=== PATIENT | male | born 1995 | race Caucasian/White ===

== ENCOUNTER 2024-07-15 22:06 | Inpatient (IN) | payer OTHER, SELFPAY ==
[2024-07-15 18:39] VITALS: BP 130/93
[2024-07-15 19:08] VITALS: BP 131/86
[2024-07-15 19:09] VITALS: BMI 26.5
[2024-07-15 19:33] LABS: % Basophils 0.3 % (0-2); % Eosinophils 0.9 % (0-6); % Immature Granulocytes 0.3 % (0-0.5); % Lymphocytes 16.4 % (20.5-51.1); % Monocytes 6.9 % (1.7-9.3); % Neutrophils 75.2 % (42.2-75.2); Absolute Eosinophils 0.1 10^3/uL (0-0.7); Absolute Lymphocytes 1.1 10^3/uL (1.2-3.4); Absolute Monocytes 0.5 10^3/uL (0.1-0.6); Absolute Neutrophils 5.3 10^3/uL (1.4-6.5); Hematocrit 34.8 % (39.0-52.0); Hemoglobin 12.2 g/dL (13.0-18.0); Mean Corp Hgb Conc. 35.1 g/dL (33.0-37.0); Mean Corpuscular Hgb 30.3 pg (27.0-31.0); Mean Corpuscular Volume 86.6 fL (80.0-94.0); Mean Platelet Volume 10.3 fL (7.4-10.4); Nucleated Red Blood Cells % 0 % (-); Platelet Count 160 10^3/uL (130-400); Red Blood Cell Count 4.02 10^6/uL (4.70-6.10); Red Cell Dist. Width 12.6 % (11.5-14.5)
--- NOTE | 2024-07-15 19:36 | ED.GENMED ---
History of Present Illness
General
Chief Complaint: Chest Pain
Source: patient and family
Time Seen by Provider: 07/15/24 19:14
History of Present Illness
History of Present Illness:
This patient is a 28-year-old male who presents emergency with complaints of a sore throat that started Wednesday evening associated with fever. He went to an urgent care on Wednesday and was diagnosed with strep pharyngitis and started on amoxicillin.
He feels that his sore throat has markedly improved. However, last evening he noticed that when he lays supine he feels a 'general' in the neck and chest area. This is not interrupting his sleep. When he awoke today he noticed that he has this
'general discomfort' even when he is upright. He denies difficulty swallowing, vomiting, nausea. He denies fever today. He denies swelling, change in voice, sense of fullness in the back of his throat, foreign body sensation, abdominal pain,
dyspnea, cough, rhinorrhea, or other complaints. He went to an urgent care and had it chest x-ray that was reportedly 'weird' as per family and referred to the ER.
Past History
Past History
ED Past Medical History: Psychiatric (a/d) and Other (Pneumothorax as an )
ED Past Surgical History: Other (Hernia)
Social History
Tobacco: Non-smoker
Alcohol: Occasional
Drug: None
Living: with roommate
Phy Exam
Physical Exam
Physical Exam:
GENERAL: Alert , in no apparent distress, nontoxic, extremely well-appearing
EYE: pupils equal and reactive
NECK: Supple, no significant adenopathy, no swelling, trachea midline, no tenderness to palpation.
ENT: Mild posterior pharyngeal erythema without exudate, uvula midline, no trismus, no drool, voice clear, no submental swelling.
CARDIAC: Regular rate and rhythm .
LUNGS: Clear breath sounds bilaterally, no acute respiratory distress, no wheezes/rales/rhonchi
ABDOMEN: Soft, without focal tenderness, no r/g, no cvat
NEUROLOGICAL: Alert and oriented, no focal neuro deficits
SKIN: Warm and dry, skin intact.
MUSCULOSKELETAL: No edema, well perfused.
PSYCH: Normal and appropriate interaction.
Scores
Heart Score for Chest Pain Patients
STEMI patient?: Not applicable
Course
Orders/Labs/Results
Orders:
Orders
07/15/24 Breakfast
Regular
At Your Request: Full Participation
07/15/24 18:28
ECG [Electrocardiogram (*1)] Urgent
Reason for Study: Chest Pain
EKG- Treatment ONCE
07/15/24 19:13
C-Reactive Protein Urgent
Comment: ADD ON
Complete Blood Count/With Diff Urgent
Comprehensive Metabolic Panel Urgent
Erythrocyte Sed Rate Urgent
Comment: ADD ON
Troponin I Urgent
07/15/24 19:35
Neck Soft Tissue [CR Soft Tissue Neck ] Urgent
Comment:
Reason For Exam: pain s/p dx of strept pharyngitis
07/15/24 19:43
CT Chest W/o Iv Contrast Urgent
Comment:
Reason For Exam: reported cxr abnl, c/o cp s/p pharyngitis
07/15/24 20:07
Add On- LAB Urgent
Tests Added?: ESR, CRP
07/15/24 20:24
Ketorolac [Toradol] 15 mg .ROUTE .STK-MED ONE
Ketorolac [Toradol] 15 mg IV NOW STA
07/15/24 21:00
COVID-19 Antigen Urgent
Source: Nasal Swab
Influenza A+B Rapid Molecular Urgent
BRANDON Source: Nasal Swab
Specimen Description:
07/15/24 21:35
Admit/Transfer Patient As Directed
Co-Sign Provider:
Level of Care: Inpatient admission
Assign to:: IMU- Intermediate Care
Physician / Group: Stephany
Diagnosis: Myocarditis / Acute Rheumatic Fever
Reason for Hospitalization: Myocarditis / Acute Rheumatic Fever
Expected length of stay greater than two midnights?: Yes
ELOS- Estimated Length of Stay in days: 3
I certify the patient meets the requirements for IP care: Yes
PRN Pain Medication Management As Directed
May give lesser potent ordered pain med per pt: Yes
preference::
Protocol:: Medication orders for pain may be administered in a
manner that supports deferring to patient preference
when the pt is:
- Requesting an ordered lesser potent pain medication.
Least to most potent pain medications are defined
as: acetaminophen < NSAID < tramadol < opioids
(morphine, oxycodone, hydromorphone).
- Requesting a lesser dose of the same medication IF
ORDERED.
- Requesting a less intrusive route of administration
if both routes are prescribed by the provider (PO <
IV).
07/15/24 21:36
Code Status As Directed
Resuscitation Status: Full Code
07/15/24 22:40
Acetaminophen [Tylenol] 650 mg PO Q4HPRN PRN
HYDROmorphone [Dilaudid] 0.5 mg IV Q4HPRN PRN
Lactated Ringers [Lr] 1,000 ml IV 100 mls/hr
07/15/24 22:40
Echo 2D MMode Doppler [Echo 2D MMode Color/Doppler] Routine
Reason for Study: Myocarditis / Acute Rheumatic Fever
CARDIOLOGY CONSULT Routine
Consulting Provider: Gilmar Cordon)
Was physician already notified: Yes
Reason for consult: Myocarditis / Acute Rheumatic Fever
INFECTIOUS DISEASE CONSULT Routine
Consulting Provider: Destiney López
Was physician already notified: Yes
Reason for consult: Myocarditis / Acute Rheumatic Fever
Activity As Directed
Activity Level: Ambulate
EKG with chest pain [ECG as needed] As Directed
ECG as needed for:: Chest Pain
I/O [Intake/ Output] As Directed
Frequency: Per unit guidelines
Pneumatic Compression Sleeves As Directed
Type: Knee high
Vital Signs As Directed
Frequency: Per unit guidelines
Oxygen Therapy [O2 Therapy] [RESP] Routine
Titrate/Wean O2 to maintain O2 sat greater than (%): 94
DX Deep Vein Thrombosis Video Routine
07/15/24 22:53
TSH Reflex To Free T4 Routine
Troponin I Q6H
07/15/24 23:00
Ampicillin/Sulbactam 3 G [Unasyn] 3 gm 0.9% Sodium Chloride 100 ml [Nss] 100 ml IV Q6H
07/16/24 03:40
Troponin I Q6H
07/16/24 06:00
EKG [Electrocardiogram (*1)] IN AM
Reason for Study: Chest Pain
Basic Metabolic Panel IN AM
Complete Blood Count/No Diff IN AM
07/16/24 09:40
Troponin I Q6H
Abnormal Lab Results
07/15/24
19:13
RBC 4.02 L 10^6/uL
(4.70-6.10)
Hgb 12.2 L g/dL
(13.0-18.0)
Hct 34.8 L %
(39.0-52.0)
Absolute Lymphs (auto) 1.1 L 10^3/uL
(1.2-3.4)
Lymphocytes % 16.4 L %
(20.5-51.1)
ESR 37 H mm/hour
(0-20)
Glucose 102 H mg/dl
(70-99)
AST 86 H U/L
(17-59)
Alkaline Phosphatase 33 L U/L
(38-126)
Troponin I 11.900 H* ng/ml
C-Reactive Protein 126.50 H mg/L
(0.0-10.00)
07/15/24 19:13
07/15/24 19:13
Vital Signs
Initial and Last Documented VS:
Initial Vital Signs
Temp Pulse Resp BP Pulse Ox
98.4 F 91 18 130/93 100
07/15/24 18:39 07/15/24 18:39 07/15/24 18:39 07/15/24 18:39 07/15/24 18:39
Last Documented Vital Signs
Temp Pulse Resp BP Pulse Ox
98.4 F 109 18 130/93 98
07/15/24 22:30 07/16/24 00:15 07/16/24 00:15 07/15/24 22:28 07/15/24 22:30
*Critical Care Note
Total Time (30-74mins, 75-104mins- exclusive of procedures): Not Applicable
Update Note
Update Note:
Patient presents to the Emergency Department with __general discomfort in neck and chest area
Number and Complexity of Problems Addressed at the Encounter
� Chronic conditions affecting care:
� Acute Exacerbation and/or Progression of Chronic Illness:
� Differential Diagnosis includes: But not limited to pneumonia, bronchitis, neck infection, etc. etc.
Amount and/or Complexity of Data to be Reviewed and Analyzed
� I performed an independent evaluation of and my interpretation is:
EKG: Read by me, normal sinus rhythm, normal rate, normal axis, no NM depression, ST elevation, or other abnormalities noted
CT:
Xrays:
Laboratory Studies: Markedly elevated troponin at 11.9 elevated ESR, normal white blood cell count
Other:
� Review of other/old records reveals:
� Clinical information was obtained by an independent historian: Mother and father who are at bedside
� Prescriptions/Medications Considered but not given:
� Further testing considered but not performed:
Risk of Complications and/or Morbidity or Mortality of Patient Management
� Social determinants of health affecting care:
� Discussion with other providers (PCP, Hospitalists, Consultants, etc):
� Escalation of care including admission/observation vs risk of discharge considered: I looked at x-ray from urgent care via synapse and there is some shadowing at the left base of unclear etiology however not suspicious for
pneumothorax or pneumonia. CT is completely normal. No pericardial effusion noted. Clinical picture consistent with myocarditis, no ECG findings to suggest pericarditis at this time. Vital signs are unremarkable, blood pressure stable, do not
have concerns of pericardial effusion or tamponade impending. Airway stable. Case discussed with cardiology, Dr. Cordon, who agrees and recommends telemetry monitoring and continue supportive care. Long discussion with parents and patient,
questions answered. [place] text to hospitalist.
ED Attending Note
-
Portions of this chart may have been created with voice recognition software.� Occasional wrong word or��sound alike� substitutions may have occurred due to the inherent limitations of voice recognition software.
Discharge Plan
Departure
Patient Disposition: Admit
Date of Disposition: 07/15/24
Time of Disposition: 20:56
Admit to: Telemetry
Admit to doctor: stephany
Presentation/result/management discussed w/ accepting MD/DO: Hospitalist
Condition: Fair
Discharge Problem:
Myocarditis
Interventions
Interventions:
*Risk Screen - Suicide Last Done: 07/15/24 18:39
*General Assessment Last Done: 07/15/24 18:39
*Neglect/Abuse Screening Last Done: 07/15/24 18:39
ED- Fall Risk Assessment Last Done: 07/15/24 19:09
*ED COVID-19 Vaccine History Last Done: 07/15/24 22:54
*Nursing Disposition Last Done: 07/15/24 22:35
ED- Cardiac Assessment Last Done: 07/15/24 19:22
Discharge Date and Time
Discharge Date/Time: 07/15/24 22:35
[2024-07-15 20:01] LABS: ALT (SGPT) 36 U/L (0-50); AST (SGOT) 86 U/L (17-59); Albumin 4.5 g/dl (3.5-5.0); Alkaline Phosphatase 33 U/L (38-126); Blood Urea Nitrogen 15 mg/dl (9-20); Calcium 9.4 mg/dl (8.4-10.2); Carbon Dioxide 28 mmol/L (22-30); Chloride 102 mmol/L (98-107); Estimated Creatinine Clearance > 125 ml/min; Glucose 102 mg/dl (70-99); Sodium 143 mmol/L (135-145); Total Bilirubin 0.6 mg/dl (0.2-1.3); Total Protein 7.2 g/dl (6.3-8.2); eGFR > 60.00
[2024-07-15 20:33] LABS: Erythrocyte Sed Rate 37 mm/hour (0-20)
[2024-07-15] MEDS: TORADOL 15 MG IV (20:39)
[2024-07-15 20:57] VITALS: BP 139/99
[2024-07-15 21:28] VITALS: BP 135/94
[2024-07-15 21:29] LABS: COVID-19 Antigen Negative (Negative)
--- NOTE | 2024-07-15 21:44 | HPS.HSE ---
Family Physician
-
Family Physician: Av Castillo
Chief Complaint
-
Sore throat, Chest Discomfort
History of Present Illness
Patient is a 28y M with no significant PMH who presents to ED complaining of chest discomfort for 24 hours. Patient states that he initially developed sore throat and fever on Wednesday. He was seen at an Urgent Care and diagnosed with Strep
throat on Wednesday or (he cannot recall which). He started taking amoxicillin TID that day - he is unsure of the dose. Patient states that his sore throat and fever have improved since that time - but not fully resolved. Yesterday
afternoon, he noted some mild chest pressure. No associated palpitations, SOB, dizziness, etc. Discomfort is in the chest / epigastric region and occasionally in the back.
No N/V/D. No urinary complaints.
Medical History
Past Medical History
Past Medical History: Reports Other
Additional Past Medical History:
ADHD
Past Surgical History: Reports Other
Additional Past Surgical History:
Epigastric Hernia Repair
Social History
Tobacco: Non-smoker
Alcohol: Occasional (Rare)
Drug: None
Living: With Family
Family History
Family History: Other (Father: CAD)
Allergies / Home Medications
Allergies reflects when Allergies were last updated in [facility].
Home Medications with original date entered in [facility]
Allergy/Medication List:
Allergies
Allergy/AdvReac Type Severity Reaction Status Date / Time
No Known Allergies Allergy Verified 08/11/23 07:37
Home Medications
lorazepam 0.5 mg tablet 0.5 mg PO TID PRN anxiety 08/04/23
acetaminophen 325 mg tablet 650 mg (2 x 325 mg) PO Q4HPRN PRN mild pain #1 tab 08/11/23
ibuprofen 200 mg tablet 400 - 600 mg (2 - 3 x 200 mg) PO Q6HPRN PRN moderate pain #1 tab 08/11/23
amoxicillin 500 mg capsule mg PO TID 07/15/24
Review of Systems
-
History Source: Patient
A 12 point ROS was completed and negative except as noted: Yes
Constitutional: Reports Fever, Fatigue and Chills
EENT: Reports Sore Throat and Runny Nose
Respiratory: Denies Cough or Trouble Breathing
Cardiac: Reports Chest Pain; Denies Diaphoresis, Palpitations or Syncope
Abdomen/GI: Denies Abdominal Pain, Nausea, Vomiting or Diarrhea
: Denies Dysuria or Flank Pain
Neurological: Denies Dizzy or Headache
Psych: Denies Depression or Anxiety
Physical Exam
Vital Signs
Vital Signs
Temp Pulse Resp BP Pulse Ox
100.5 F H 100 24 135/94 99
07/15/24 20:55 07/15/24 21:30 07/15/24 21:30 07/15/24 21:28 07/15/24 21:30
Physical Exam
General: Other (28y M in no acute distress.)
HEENT: Moist mucous membranes, PERRLA and Other (Posterior pharygeal erythema, enlarged tonsils with erythema.)
Respiratory: Clear; No Wheezes, Rales or Rhonchi
Cardiac: S1/S2 and Tachycardia; No Murmur
GI: Soft, Non Tender, Non Distended and Normal Bowel Sounds
Musculoskeletal: No Clubbing, No Cyanosis and No Edema
Neuro: AO x 3
Laboratory Results
-
07/15/24 19:13
07/15/24 19:13
Laboratory Results
Total Bilirubin 0.6 mg/dl (0.2-1.3) 07/15/24 19:13
AST 86 U/L (17-59) H 07/15/24 19:13
ALT 36 U/L (0-50) 07/15/24 19:13
Alkaline Phosphatase 33 U/L (38-126) L 07/15/24 19:13
Troponin I 11.900 ng/ml H* 07/15/24 19:13
Impression/Plan
-
A/P: Patient is a 28y M with no significant PMH who presents to ED complaining of chest discomfort for the past 24 hours and recent sore throat / Strep.
Strep Pharyngitis
Acute Rheumatic Fever secondary to the above
Myocarditis secondary to the above
- Admit to monitored bed for further evaluation and treatment.
- Continue abx with IV Unasyn for now.
- Supportive care including pain control, antipyretics, etc.
- Monitor for any evidence of arrhythmia - none at present.
- Cardiology and ID consulted for additional recommendations.
- Check Echo.
- Follow for any new / worsening symptoms.
- Follow troponin to peak.
DVT Prophylaxis: SCDs
Code Status: Full
[2024-07-15 22:00] VITALS: BP 130/93
[2024-07-15 22:28] VITALS: BP 130/93
[2024-07-15] MEDS: LR 1000 IV (23:05)
[2024-07-15] MEDS: UNASYN IV (23:40)
[2024-07-15 23:47] LABS: TSH Reflex To Free T4 1.86 uIU/ml (0.47-4.68)
[2024-07-16] VITALS (9 sets, daily range): BP systolic 106–124; BP diastolic 71–86; BMI 27.0
--- NOTE | 2024-07-16 00:06 | PTCARENOTE ---
Pt Aox3, Independent, denies pain, but he has discomfort in his epigastric region, that has been the same since admission. Trending trops, 2nd trop more elevated at 16.7, house provided notified, no further orders at this time.
[2024-07-16 04:20] LABS: Hematocrit 31.9 % (39.0-52.0); Hemoglobin 11.3 g/dL (13.0-18.0); Mean Corp Hgb Conc. 35.4 g/dL (33.0-37.0); Mean Corpuscular Hgb 29.4 pg (27.0-31.0); Mean Corpuscular Volume 82.9 fL (80.0-94.0); Mean Platelet Volume 10.5 fL (7.4-10.4); Platelet Count 157 10^3/uL (130-400); Red Blood Cell Count 3.85 10^6/uL (4.70-6.10); Red Cell Dist. Width 12.6 % (11.5-14.5); White Blood Cell Count 6.8 10^3/uL (4.8-10.8)
[2024-07-16 04:39] LABS: Blood Urea Nitrogen 21 mg/dl (9-20); Calcium 9.2 mg/dl (8.4-10.2); Carbon Dioxide 26 mmol/L (22-30); Chloride 103 mmol/L (98-107); Estimated Creatinine Clearance > 125 ml/min; Glucose 106 mg/dl (70-99); Potassium 3.9 mmol/L (3.5-5.1); Sodium 141 mmol/L (135-145); eGFR > 60.00
[2024-07-16] MEDS: UNASYN IV (05:04)
[2024-07-16] MEDS: TYLENOL 650 MG PO ×2 (05:10→15:58)
[2024-07-16] MEDS: TORADOL 15 MG IV (06:09)
[2024-07-16] MEDS: LR 1000 IV (06:12)
--- NOTE | 2024-07-16 06:25 | PTCARENOTE ---
Pt given dose of Toradol for discomfort in chest and scapula. Trops continue to trend up, house provider Paulette smith notified. Also mortgage advisor Gilmar Cordon was notified, awaiting response. No further orders at this time.
--- NOTE | 2024-07-16 07:26 | W.PN.HOSP.TC ---
Today's Communication/Plan
-
Transfer to telemetry
Continue antibiotics
Echocardiogram
ID consult
Cardiology consult
Assessment / Plan
Assessment / Plan
Gen-AAOx3, NAD
HEENT-NC, AT, anicteric, clear oral mm
Neck-supple
CV-reg, no M, +S1/S2
Lungs-clear B/L
Abd-soft, NT, ND
Ext-no edema
Musculoskeletal-no cyanosis, clubbing
Skin-warm and dry
Neuro-grossly non-focal
Psych-calm, cooperative
Acute rheumatic fever - complicated by myocarditis, rheumatic heart disease. Presentation with chest pain. Rule out valvular involvement, check echocardiogram. Rising troponin noted. Continue antibiotics. Toradol IV as needed chest pain.
He denies arthritis, rash, or neurologic symptoms.
Denies history of rheumatic fever. Denies dyspnea on exertion.
Admits to frequent strep throat infections as a child, last was at least 10 years ago.
Will need secondary prophylaxis with oral penicillin for the next 10 years. Has never been on prophylaxis previously.
Recent group A beta-hemolytic strep infection - started on amoxicillin last week. Girlfriend had a sore throat before he did. She works with children. She did not get tested for strep throat, recommend that she gets tested.
Full code
Transfer to telemetry.
Anticipated Discharge: 24 - 48 hours
Subjective/Interval History
-
Date of Service: July 16, 2024
Patient seen and examined. Was having upper back pain last night but now improved sitting in the chair. Denies significant chest pain.
Objective Data
-
Labs:
Laboratory Results
07/16/24
03:57
WBC 6.8
Hgb 11.3 L
Hct 31.9 L
Plt Count 157
Sodium 141
Potassium 3.9
Chloride 103
Carbon Dioxide 26
BUN 21 H
Creatinine 0.8
Glucose 106 H
Calcium 9.2
Vital Signs:
Vital Signs
Temp Pulse Resp BP Pulse Ox
99.1 F 93 21 106/73 98
07/16/24 04:10 07/16/24 03:30 07/16/24 03:30 07/16/24 02:00 07/16/24 02:43
I&O
07/15/24 07/16/24 07/17/24
07:59 06:59 06:59
Intake Total
Balance
Review of Systems
-
History Source: Patient
All other systems: Reviewed and negative
--- NOTE | 2024-07-16 08:19 | CON.ID ---
Consultation
-
Date/Time Consultation Requested: July 15, 20240
Date/Time Consultation Performed: July 16, 2024 0820
Requesting Provider: Dr. Doron Smith
Performing Provider: Dr. Destiney López
Reason for Consultation: Rheumatic fever
Chief Complaint / Past History
Chief Complaint
Chest discomfort
History of Present Illness
28-year-old male with no past medical history who presented to the hospital last night due to 2-day history of chest discomfort. He reports last week on Wednesday or Wednesday, July 10, he developed scratchy throat. COVID was negative. He had fever
up to 103. The sore throat got worse and he saw white exudate. He then went to urgent care on Wednesday. Rapid group A strep screen was amoxicillin 3 times daily. Sore throat improved. However Wednesday he noted substernal discomfort in supine
position. Later the chest discomfort was not positional. He went back to urgent care who recommended going to the ER. Yesterday in the ER temperature 100.5. Troponin was 11.9. Sed rate and CRP elevated. He was started on Unasyn. He still has
chest discomfort today. The sore throat is improving. No joint pains. No rash or cutaneous lumps. His girlfriend is a pre-schoolteacher and was ill 2 days prior to him getting ill. She did have sore throat which and she recovered quickly. He
and his roommate became ill around the same time. Patient states he had history of strep throat about 4 or 5 times when he was young without complications.
Past History
Past Medical History: None
Additional Past Surgical History:
Abdominal hernia repair
Allergy History:
No Known Allergies Allergy (Verified 08/11/23 07:37)
Medications Reviewed: Yes
Current Antibiotics:
Unasyn
Social History
Tobacco: Non-Smoker
Alcohol: None
Drug: None
Personal: Single
Living: With Roomate
Employment: Employed (IT)
Family History
Family History: Not Pertinent
Review of Systems
Review of Systems
General: Fever and Change in Appetite; Negative Chills
HEENT: Pharyngitis; Negative Stiff Neck, Sinus Problems or Headache
Cardiovascular: Chest Pain; Negative Dyspnea
Respiratory: Negative Cough
Gasteroenterology: Negative Nausea, Vomiting or Diarrhea
Genital / Urological: Negative Dysuria or Flank Pain
Endocrine: Negative Weakness
Musculoskeletal: Negative Arthralgias
Skin / Hair / Nails: Negative Rash
Neurological: Negative Headache or Dizziness
All systems: All other systems were reviewed and were negative
Vital Signs
Temp Pulse Resp BP Pulse Ox
99.1 F 93 21 106/73 98
07/16/24 04:10 07/16/24 03:30 07/16/24 03:30 07/16/24 02:00 07/16/24 02:43
Selected Entries
07/15/24
20:55
Temp 100.5 F H
Physical Exam
Physical Exam
Constitutional: No Acute Distress and Comfortable
Eyes: No Conjunctival Hemorrhage and Sclera Anicteric
Pharynx: Other (Mild exudate right pharynx)
Cardiovascular: Regular Rate and S1/S2
Pulmonary: Clear
Gastrointestinal: Soft, Non Tender, Non Distended and Normal Bowel Sounds
Genito-Urinary: Negative CVA Tenderness
Extremities: Negative Edema
Musculoskeletal: Negative Joint Swelling, Joint Effusion or Spinal Tenderness
Skin: Negative Rash
Neurological: AO x 3
Lab / Diagnostic Study Results
07/16/24 03:57
07/16/24 03:57
Abs Immat Gran (auto) 0.0 10^3/uL (0-0.05) 07/15/24 19:13
Absolute Neuts (auto) 5.3 10^3/uL (1.4-6.5) 07/15/24 19:13
Absolute Lymphs (auto) 1.1 10^3/uL (1.2-3.4) L 07/15/24 19:13
Absolute Monos (auto) 0.5 10^3/uL (0.1-0.6) 07/15/24 19:13
Absolute Basos (auto) 0.0 10^3/uL (0-0.2) 07/15/24 19:13
Immature Gran % 0.3 % (0-0.5) 07/15/24 19:13
Neutrophils % 75.2 % (42.2-75.2) 07/15/24 19:13
Lymphocytes % 16.4 % (20.5-51.1) L 07/15/24 19:13
Monocytes % 6.9 % (1.7-9.3) 07/15/24 19:13
Eosinophils % 0.9 % (0-6) 07/15/24 19:13
Basophils % 0.3 % (0-2) 07/15/24 19:13
ESR 37 mm/hour (0-20) H 07/15/24 19:13
C-Reactive Protein 126.50 mg/L (0.0-10.00) H 07/15/24 19:13
Microbiology Results
Micro:
07/15/24 21:00 Influenza Types A & B (QUETA) - Final
Nasal Swab Negative for Influenza A & B, NAAT
Negative results must be combined with clinical observations
and patient history.
Nucleic Acid Amplification test (NAAT)performed on the
[employer] platform.
07/15/[address]: Unremarkable CT of the Chest without contrast.
07/15/24 Neck XRAY: No retropharyngeal soft tissue swelling. No radiopaque foreign body. Subtle fullness at the base of tongue region of the vallecula, which could represent mild reactive/inflammatory lymphoid tissue given history of recent strep
pharyngitis.
Assessment / Plan
# Acute rheumatic fever with carditis
- Meets [facility] Kathy criteria: 1 major carditis; 2 minor: fever and elevated ESR/CRP
- DC Unasyn
- Eradicate GAS with PCN VK 500mg po q8h x 10 days
- After treatment, need prophylactic PCN VK 250mg po bid
- Duration of prophylaxis depends on sequelae of carditis
- For TTE.
Care Review
Plan reviewed with: Physician (Dr. [place] Cordon)
--- NOTE | 2024-07-16 09:43 | CON.CAR ---
Consultation
Consultation Request
Date/Time Consultation Requested: 07/15/24 @ 9:30pm
Date/Time Consultation Performed: 07/16/24 @ 8:30am
Requesting Provider: Luis Sal
Performing Provider: Gilmar Cordon
Reason for Consultation: myocarditis
Medical History
-
Chief Complaint: Chest pain
History of Present Illness:
28-year-old male with past medical history of anxiety and family history of early coronary artery disease who presents to the ER with chest pain.
Patient reports that earlier this week he was diagnosed with strep throat and was started on amoxicillin. On Wednesday evening, he noted that when he was laying down to go to bed he felt some chest discomfort and mild shortness of breath. This
resolved and he was able to sleep but on Wednesday his pain progressed so he decided to present to the ER. In the ER, his ECG was nonischemic and troponin was elevated to 11.9. He was admitted to the hospitalist service and cardiology is consulted
for chest pain and elevated troponin, overall concerning for viral myocarditis.
He has never seen a fitting room inspector and has no significant cardiovascular history other than occasional PVCs. His father had a CABG in his 40s as did his uncle. He has had cholesterol checked before and thinks it was okay; no treatment was
recommended. He is a non-smoker and works in IT. He does not do cardio for exercise but does push-ups and pull-ups without any symptoms. He also moves a lot of heavy things for work and has no symptoms with any of this.
Past Medical History
Past Medical History: Arrhythmias (PVCs) and Psychiatric (Anxiety)
Social History
Tobacco: Non-Smoker
Employment: Employed (Works in IT)
Family History
Family History: Early CAD (Father had a CABG in his 40s)
Allergies / Home Medications
Allergy/AdvReac Type Severity Reaction Status Date / Time
No Known Allergies Allergy Verified 08/11/23 07:37
�Medication �Instructions �Recorded �Confirmed �Type
lorazepam 0.5 mg tablet 0.5 mg PO TID PRN anxiety 08/04/23 07/15/24 History
acetaminophen 325 mg tablet 650 mg (2 x 325 mg) PO Q4HPRN PRN 08/11/23 07/15/24 Rx
mild pain #1 tab
ibuprofen 200 mg tablet 400 - 600 mg (2 - 3 x 200 mg) PO 08/11/23 07/15/24 Rx
Q6HPRN PRN moderate pain #1 tab
amoxicillin 500 mg capsule mg PO TID Infection 07/15/24 History
Review of Systems
-
All other systems: Negative unless noted
Physical Exam
Vital Signs
Temp Pulse Resp BP Pulse Ox
99.5 F 97 19 114/71 98
07/16/24 08:23 07/16/24 08:30 07/16/24 08:30 07/16/24 08:24 07/16/24 02:43
Lab Results
07/16/24 03:57
07/16/24 03:57
Troponin I 18.800 ng/ml H* 07/16/24 03:57
CRP 126.5
Physical Exam
General: Well Developed, Well Nourished and Comfortable
Cardiac: S1/S2 and Regular Rhythm; Negative Murmur, Rub, Peripheral Edema or JVD
Musculoskeletal: No Edema
Impression / Plan
-
28-year-old male with past medical history of anxiety and family history of early coronary artery disease with recently diagnosed strep infection who presents to the ER with chest pain and elevated troponin, concerning for viral myocarditis.
Viral myocarditis
-Likely triggered by his recent strep infection. Appears uncomplicated at this time given no signs or symptoms consistent with LV dysfunction and no arrhythmias on telemetry
-We will obtain an echocardiogram tomorrow
-Continue to monitor on telemetry
-He will need a cardiac MRI as an outpatient
-Treatment for myocarditis is supportive care. NSAIDs should be avoided. He can take Tylenol as needed for pain.
-He should not exercise vigorously for 3-6 months prior to returning to exercise he will need an ETT, event monitor, and echocardiogram
-Appreciate ID recommendations for treatment of his strep infection
Data Reviewed
-
EKG: Tracing Personally Visualized and interpreted, Discussed with Physician, Discussed with Nurse and Discussed with Patient
CT Scan: Report Reviewed by me, Discussed with Physician and Discussed with Patient
Labs: Labs Reviewed by me, Discussed with Physician and Discussed with Patient
--- NOTE | 2024-07-16 10:25 | CM ---
CM following re: discharge planning.
Reviewed pt's chart, met with pt. pt's father, mother and sister at bedside.
Pt is a 28 year old male, admitted with primary dx of Acute rheumatic fever - complicated by myocarditis, rheumatic heart disease.
Pt reports he lives with a room mate in a 2SH, 1 step to enter, has suppertime parents and younger sister. 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 Pt expressed to me his worried feelings regrading his diagnosis, emotional
support with reassurance offered and provided.
PCP: Av Castillo
Pharmacy: [facility].
D/C plan: home with anticipated no after care VN needs.
CM will follow with discharge plan updates as hospitalization progresses
--- NOTE | 2024-07-16 12:00 | PTCARENOTE ---
Rec'd pt at 0700. Pt states that his CP has improved, has some mild sternal and upper back discomfort but it is minimal. Monitor SR/ST. Lungs CTA. Pt OOB in chair, ambulating in room. Family at bedside, updated by cardiology.
[2024-07-16] MEDS: PEN VK 500 MG PO ×2 (14:24→22:01)
--- NOTE | 2024-07-16 15:54 | PTCARENOTE ---
Received pt from ICU. [facility]. Pt has temp of 100 and complains of some pain in sternum. Tylenol given. Pt and visitor oriented to unit by RN. Call david within reach.
[2024-07-17 03:36] VITALS: BP 123/79
[2024-07-17] MEDS: PEN VK 500 MG PO ×3 (06:18→21:12)
[2024-07-17] MEDS: TYLENOL 650 MG PO ×3 (07:29→21:13)
[2024-07-17 07:30] VITALS: BP 111/68
--- NOTE | 2024-07-17 08:37 | W.PN.CD ---
Today's Communication / Plan
-
Labs pending.
Keep K > 4, Mg > 2, Ca > 8 and PO4 > 2.5.
Start metoprolol succinate 25 mg daily.
Echocardiogram today.
GDMT as indicated.
Avoid NSAIDS.
Impression / Plan
-
Impression/Plan: 28-year-old male with past medical history of anxiety and family history of early coronary artery disease with recently diagnosed strep infection who presents to the ER with chest pain and elevated troponin, consistent with
myocarditis.
#Myocarditis
-Likely triggered by his recent strep infection. Appears uncomplicated at this time given no signs or symptoms consistent with LV dysfunction and no arrhythmias on telemetry.
-ID concerned for acute rheumatic fever. The patient does meet diagnostic criteria of 1 major manifestation (carditis) and 2 minor criteria (fever, elevated inflammatory markers), though the timing is not typical.
-Regardless, the potential risks of under treating rheumatic fever are high.
-Echocardiogram today.
-He will need a cardiac MRI as an outpatient.
-Treatment for myocarditis is supportive care. NSAIDs should be avoided. He can take Tylenol as needed for pain.
-He should not exercise vigorously for 3-6 months prior to returning to exercise he will need an ETT, event monitor, and echocardiogram.
-Appreciate ID recommendations for treatment of his strep infection.
-Supportive cardiac medications will depend largely on his echo results (GDMT). No evidence of heart failure.
#NSVT
-Acute.
-Likely due to myocarditis.
-Labs pending.
-Keep K > 4, Mg > 2, Ca > 8 and PO4 > 2.5.
-Start metoprolol succinate 25 mg daily.
Subjective/Interval History:
CRP = 126.5.
Troponin peaked at 24.8.
Patient given ketorolac.
NSVT seen on telemetry.
Patient feels well this AM.
Physical Exam
Vital Signs/Labs
Vital Signs
Temp Pulse Resp BP Pulse Ox
37.4 C 95 16 111/68 99
07/17/24 07:30 07/17/24 07:30 07/17/24 07:30 07/17/24 07:30 07/17/24 07:30
07/15/24 07/16/24 07/17/24
12:59 11:59 11:59
Actual Weight
07/16/24 03:57
07/16/24 03:57
LAB Results
07/15/24 07/15/24 07/16/24
19:13 22:53 03:57
Troponin I 11.900 H* 16.700 H* D 18.800 H*
07/16/24 07/16/24 07/16/24
10:12 16:00 19:57
Troponin I 24.800 H* D Cancelled 23.200 H*
07/16/24 07/17/24
22:00 06:55
Troponin I Cancelled 22.500 H*
Physical Exam
Constitutional: No acute distress and Comfortable
EENT: Anicteric and Moist mucous membranes
Cardiovascular: Rhythm & rate is regular, Pedal edema is absent, JVD pressure is normal, S1S2 is normal and Murmur/rub/gallop absent
Respiratory: Respiratory effort normal, Lungs clear to auscul., Wheeze Absent, Crackles Absent and Rhonchi Absent
GI: Soft, Distention absent, Flat, Non tender and Normal bowel sounds
Neuro/Psych: AO x 3
Data Reviewed
-
Date of Service: July 17, 2024
Medical Decision Making: Reviewed Test Results, Independent Historian Assessment and Test Interpretation
EKG: Tracing Personally Visualized and interpreted and Report Reviewed by me
Echo: Ordered by me
X-Ray/CT/US/MRI/NUC/PET: Image Personally Visualized and interpreted and Report Reviewed by me
Medical Tests (PFT, Pathology etc): Image Personally Visualized and interpreted and Report Reviewed by me
Labs: Labs Reviewed by me
Old Records: Reviewed
[2024-07-17 09:46] LABS: Magnesium 1.9 mg/dl (1.6-2.3); Phosphorus 4.6 mg/dl (2.5-4.5)
[2024-07-17] MEDS: TOPROL XL 25 MG PO (09:49)
--- NOTE | 2024-07-17 10:38 | CM ---
Patient seen bedside.
Patient denies home care needs.
Plan: home no needs.
--- NOTE | 2024-07-17 11:46 | W.PN.ID1 ---
Date of Service
Date of Service: July 17, 2024
Today's Communication
Continue PCN VK 500mg po q8h x 10d through 06/23/2024, then prophylactic PCN VK 250mg po bid x 10 years till 06/2034.
Assessment / Plan
# Acute rheumatic fever with myocarditis
- Positive rapid group A strep at urgent care
- Meets Kathy Steele criteria: 1 major: carditis; 2 minor: fever and elevated ESR/CRP
- Troponin peaked to 24.8, trending down
- TTE: normal EF, no pericardial effusion, no valvular abnormality.
- Continue PCN VK 500mg po q8h x 10d through 06/23/2024, then prophylactic PCN VK 250mg po bid x 10 years till 06/2034.
- Can follow up with PCP.
Chief Complaint
-: Other (Rheumatic fever)
Subjective / Review of Systems
Chest discomfort improved with Tylenol.
No more sore throat. Has scratchy throat.
Vital Signs / Physical Exam
Vital Signs
Vital Signs
Temp Pulse Resp BP Pulse Ox
99.4 F 95 16 111/68 99
07/17/24 07:30 07/17/24 09:49 07/17/24 07:30 07/17/24 09:49 07/17/24 08:15
Physical Exam
Constitutional: No Acute Distress and Comfortable
Oropharyngeal: Negative Erythema
Cardiovascular: Regular Rate and S1/S2
Pulmonary: Clear
Gastrointestinal: Soft, Tender, Distended and Normal Bowel Sounds
Extremities: Negative Edema
Neurological: AO x 3
Objective Data
Lab Data
Lab Results
07/16/24 03:57
07/16/24 03:57
ESR 37 mm/hour (0-20) H 07/15/24 19:13
Estimated Creat Clear > 125 ml/min 07/16/24 03:57
Total Bilirubin 0.6 mg/dl (0.2-1.3) 07/15/24 19:13
AST 86 U/L (17-59) H 07/15/24 19:13
ALT 36 U/L (0-50) 07/15/24 19:13
Alkaline Phosphatase 33 U/L (38-126) L 07/15/24 19:13
C-Reactive Protein 126.50 mg/L (0.0-10.00) H 07/15/24 19:13
Most recent labs reviewed.
Micro Results:
07/15/24 21:00 Influenza Types A & B (QUETA) - Final
Nasal Swab Negative for Influenza A & B, NAAT
Negative results must be combined with clinical observations
and patient history.
Nucleic Acid Amplification test (NAAT)performed on the
[employer] platform.
07/15/[address]: Unremarkable CT of the Chest without contrast.
07/15/24 Neck XRAY: No retropharyngeal soft tissue swelling. No radiopaque foreign body. Subtle fullness at the base of tongue region of the vallecula, which could represent mild reactive/inflammatory lymphoid tissue given history of recent strep
pharyngitis.
07/17/24 TTE:
Normal biventricular size and systolic function without regional wall motion abnormality.
LVEF 55-60%.
No significant valvular disease.
No pericardial effusion.
[2024-07-17 12:00] VITALS: BP 127/72
--- NOTE | 2024-07-17 15:14 | W.PN.HOSP.TC ---
Today's Communication/Plan
-
Monitor for recurrent VT with initiation of beta-anisa.
Continue antibiotics
Assessment / Plan
Assessment / Plan
Impression:
Myocarditis triggered by recent streptococcal infection
Rheumatic fever
NSVT
Plan
Acute myocarditis. Most likely by recent streptococcal infection.
Meeting criteria for acute rheumatic fever.
Troponin peaked at 24 send
No evidence for ischemia
Echocardiogram with preserved biventricular function and no valvular abnormalities
Plan is to complete 10-day course of full dose of penicillin VK to eradicate group A streptococcus and transition to prophylactic dose at 250 mg twice daily for 10 years to 06/2034
NSVT.
Acute and likely secondary to myocarditis.
Potassium magnesium within normal limits.
Initiated on beta-anisa: Metoprolol succinate 25 mg daily
Monitor electrolytes
Continue cardiac monitoring on beta-anisa
Full code
Transfer to telemetry.
Anticipated Discharge: 24 - 48 hours
Subjective/Interval History
-
Date of Service: July 17, 2024
Objective Data
-
Vital Signs:
Vital Signs
Temp Pulse Resp BP Pulse Ox
98.8 F 85 16 127/72 99
07/17/24 12:00 07/17/24 12:00 07/17/24 12:00 07/17/24 12:00 07/17/24 12:00
I&O
07/16/24 07/17/24 07/18/24
06:59 06:59 06:59
Intake Total 1580 / 1580
Output Total 1000 / 1000
Balance 580 / 580
Physical Exam
-
General: Well Developed and No Apparent Distress
HEENT: Normocephalic, Atraumatic and Moist Mucous Membranes
Respiratory: Clear to Auscultation
Cardiac: Regular Rhythm and S1/S2; Negative Murmur, Rub or Gallop
GI: Soft, Nontender, Nondistended and Normal Bowel Sounds; Negative Organomegaly
Rectal: Deferred by Provider
Musculoskeletal: No Clubbing, No Cyanosis and No Edema
Skin: Negative Rash
Neuro: Nonfocal/Grossly Intact
[2024-07-17 15:15] VITALS: BP 110/76
[2024-07-17 19:10] VITALS: BP 113/73
[2024-07-17 23:03] VITALS: BP 111/74
--- NOTE | 2024-07-18 | PTCARENOTE ---
Pt c/o chest discomfort, says he feels fine sitting up but when he lays down he feels pressure. Pt states it is not pain, he just seems to have more discomfort tonight. BP 111/74 HR 80 temp 98.3 RR 17 Pox 99 RA. MOLD PRESS OPERATOR made aware and in to see patient.
Pt refuse to be assessed by MOLD PRESS OPERATOR stating he think he was a bit anxious, plan of care continues.
[2024-07-18 03:20] VITALS: BP 108/70
--- NOTE | 2024-07-18 04:48 | PTCARENOTE ---
Patient had a 12 beat run of VTach @0411, pt asymptomatic. Pt AAOx3, RETAIL ADMINISTRATIVE ASSISTANT made aware, BMP and mag already in place for AM to be drawn, will continue plan of care.
[2024-07-18] MEDS: PEN VK 500 MG PO ×3 (05:38→21:14)
[2024-07-18 07:15] VITALS: BP 101/72
--- NOTE | 2024-07-18 08:18 | W.PN.CD ---
Addendum entered and electronically signed by Gilmar Cordon MD (Ellie) 07/18/24 08:56:
Upon further review of his telemetry, I do not feel comfortable with discharge today. His 12 beat run NSVT is more than he has had prior.
We will increase metoprolol as my note states, but we should continue to monitor him on telemetry for at least 24 hours thereafter.
Our office will set up an MCOT on discharge for continued monitoring
Possible discharge tomorrow depending on NSVT
Original Note:
Today's Communication / Plan
-
Increase metoprolol to 50 mg daily for NSVT
Follow-up with us in 2-4 weeks. Our office will schedule this.
Cardiac MRI as an outpatient
Impression / Plan
-
Impression/Plan: 28-year-old male with past medical history of anxiety and family history of early coronary artery disease with recently diagnosed strep infection who presents to the ER with chest pain and elevated troponin, consistent with
myocarditis.
#Myocarditis
-Differential includes nonrheumatic myocarditis secondary to acute strep infection versus acute rheumatic fever with carditis
-Suspect nonrheumatic secondary to acute strep infection but regardless, the potential risks of under treating rheumatic fever are high.
-TTE yesterday with normal biventricular function and no valvular abnormalities.
-He will need a cardiac MRI as an outpatient.
-Treatment for myocarditis is supportive care. NSAIDs should be avoided. He can take Tylenol as needed for pain.
-Increase metoprolol to 50 mg daily given ongoing NSVT
-He should not exercise vigorously for 3-6 months prior to returning to exercise he will need an ETT, event monitor, and echocardiogram.
-Appreciate ID recommendations for treatment of his possible rheumatic fever
#NSVT
-Acute.
-Likely due to myocarditis.
-Labs pending.
-Keep K > 4, Mg > 2, Ca > 8 and PO4 > 2.5.
-Increase metoprolol to 50 mg daily as above
Subjective/Interval History:
Patient feels well this morning.
12 beat run NSVT on telemetry this morning.
Troponin is now downtrending, at 16
Physical Exam
Vital Signs/Labs
Vital Signs
Temp Pulse Resp BP Pulse Ox
98.5 F 87 16 101/72 96
07/18/24 07:15 07/18/24 07:15 07/18/24 07:15 07/18/24 07:15 07/18/24 07:15
07/16/24 03:57
Magnesium 1.9 mg/dl (1.6-2.3) 07/16/24 03:57
LAB Results
07/15/24 07/15/24 07/16/24
19:13 22:53 03:57
Troponin I 11.900 H* 16.700 H* D 18.800 H*
07/16/24 07/16/24 07/16/24
10:12 16:00 19:57
Troponin I 24.800 H* D Cancelled 23.200 H*
07/16/24 07/17/24 07/17/24
22:00 06:55 20:16
Troponin I Cancelled 22.500 H* 15.800 H*
Physical Exam
Constitutional: No acute distress and Comfortable
Cardiovascular: Rhythm & rate is regular, Pedal edema is absent, JVD pressure is normal, S1S2 is normal and Murmur/rub/gallop absent
Respiratory: Respiratory effort normal and Lungs clear to auscul.
Data Reviewed
-
Date of Service: July 18, 2024
Medical Decision Making: Reviewed Test Results, Independent Historian Assessment, Test Interpretation and Review of Case with other Provider
EKG: Tracing Personally Visualized and interpreted
Echo: Tracing Personally Visualized and interpreted
Labs: Labs Reviewed by me
[2024-07-18 09:00] LABS: Blood Urea Nitrogen 18 mg/dl (9-20); Calcium 9.4 mg/dl (8.4-10.2); Carbon Dioxide 26 mmol/L (22-30); Chloride 102 mmol/L (98-107); Estimated Creatinine Clearance > 125 ml/min; Glucose 93 mg/dl (70-99); Potassium 4.5 mmol/L (3.5-5.1); Sodium 142 mmol/L (135-145); eGFR > 60.00
[2024-07-18] MEDS: TOPROL XL PO (09:51)
[2024-07-18] MEDS: TOPROL XL 50 MG PO (09:52)
--- NOTE | 2024-07-18 10:05 | W.PN.ID1 ---
Date of Service
Date of Service: July 18, 2024
Today's Communication
Continue PCN-VK as below.
Assessment / Plan
# Acute rheumatic fever with myocarditis
- Positive rapid group A strep at urgent care
- Meets Kathy Steele criteria: 1 major: carditis; 2 minor: fever and elevated ESR/CRP
- Troponin peaked to 24.8, trending down. +episodes of VT, PVC's
- TTE: normal EF, no pericardial effusion, no valvular abnormality.
- Continue PCN VK 500mg po q8h x 10d through 06/23/2024, then prophylactic PCN VK 250mg po bid x 10 years till 06/2034.
- Can follow up with PCP.
Chief Complaint
-: Other (Rheumatic fever)
Subjective / Review of Systems
Feels better.
Vital Signs / Physical Exam
Vital Signs
Vital Signs
Temp Pulse Resp BP Pulse Ox
98.5 F 89 16 122/78 96
07/18/24 07:15 07/18/24 09:52 07/18/24 07:15 07/18/24 09:52 07/18/24 07:15
Physical Exam
Constitutional: No Acute Distress and Comfortable
Oropharyngeal: Negative Benign
Cardiovascular: Regular Rate
Pulmonary: Clear
Extremities: Negative Edema
Neurological: AO x 3
Objective Data
Lab Data
Lab Results
07/16/24 03:57
07/18/24 07:43
ESR 37 mm/hour (0-20) H 07/15/24 19:13
Estimated Creat Clear > 125 ml/min 07/18/24 07:43
Total Bilirubin 0.6 mg/dl (0.2-1.3) 07/15/24 19:13
AST 86 U/L (17-59) H 07/15/24 19:13
ALT 36 U/L (0-50) 07/15/24 19:13
Alkaline Phosphatase 33 U/L (38-126) L 07/15/24 19:13
C-Reactive Protein 126.50 mg/L (0.0-10.00) H 07/15/24 19:13
Most recent labs reviewed.
Micro Results:
07/15/24 21:00 Influenza Types A & B (QUETA) - Final
Nasal Swab Negative for Influenza A & B, NAAT
Negative results must be combined with clinical observations
and patient history.
Nucleic Acid Amplification test (NAAT)performed on the
[employer] platform.
07/15/[address]: Unremarkable CT of the Chest without contrast.
07/15/24 Neck XRAY: No retropharyngeal soft tissue swelling. No radiopaque foreign body. Subtle fullness at the base of tongue region of the vallecula, which could represent mild reactive/inflammatory lymphoid tissue given history of recent strep
pharyngitis.
07/17/24 TTE:
Normal biventricular size and systolic function without regional wall motion abnormality.
LVEF 55-60%.
No significant valvular disease.
No pericardial effusion.
[2024-07-18 11:30] VITALS: BP 105/72
[2024-07-18 15:50] VITALS: BP 109/72
--- NOTE | 2024-07-18 16:21 | W.PN.HOSP.TC ---
Today's Communication/Plan
-
Recurrent NSVT.
Monitor on increased dose of beta-anisa
Electrolytes and renal function within normal limits.
Continue oral antibiotics
Assessment / Plan
Assessment / Plan
Impression:
Myocarditis triggered by recent streptococcal infection
Rheumatic fever
NSVT
Plan
Acute myocarditis. Most likely by recent streptococcal infection.
Meeting criteria for acute rheumatic fever.
Troponin peaked at 24 send
No evidence for ischemia
Echocardiogram with preserved biventricular function and no valvular abnormalities
Plan is to complete 10-day course of full dose of penicillin VK to eradicate group A streptococcus and transition to prophylactic dose at 250 mg twice daily for 10 years to 06/2034
NSVT.
Acute and likely secondary to myocarditis.
Potassium magnesium within normal limits.
Initiated on beta-anisa: Metoprolol succinate 25 mg daily
Monitor electrolytes
Continue cardiac monitoring on beta-anisa
Full code
Transfer to telemetry.
Anticipated Discharge: 24 - 48 hours
Subjective/Interval History
-
Date of Service: July 18, 2024
Objective Data
-
Labs:
Laboratory Results
07/18/24
07:43
Sodium 142
Potassium 4.5
Chloride 102
Carbon Dioxide 26
BUN 18
Creatinine 0.7
Glucose 93
Calcium 9.4
Vital Signs:
Vital Signs
Temp Pulse Resp BP Pulse Ox
98.9 F 82 16 109/72 100
07/18/24 15:50 07/18/24 15:50 07/18/24 15:50 07/18/24 15:50 07/18/24 15:50
I&O
07/17/24 07/18/24 07/19/24
06:59 06:59 06:59
Intake Total 1580 / 1580 1280 / 1280
Output Total 1000 / 1000
Balance 580 / 580 1280 / 1280
Physical Exam
-
General: Well Developed and No Apparent Distress
HEENT: Normocephalic, Atraumatic and Moist Mucous Membranes
Respiratory: Clear to Auscultation
Cardiac: Regular Rhythm and S1/S2; Negative Murmur, Rub or Gallop
GI: Soft, Nontender, Nondistended and Normal Bowel Sounds; Negative Organomegaly
Rectal: Deferred by Provider
Musculoskeletal: No Clubbing, No Cyanosis and No Edema
Skin: Negative Rash
Neuro: Nonfocal/Grossly Intact
[2024-07-18 19:05] VITALS: BP 116/75
[2024-07-18] MEDS: TYLENOL 650 MG PO (20:08)
[2024-07-18 23:15] VITALS: BP 106/65
[2024-07-19 03:06] VITALS: BP 104/61
[2024-07-19] MEDS: PEN VK 500 MG PO ×2 (06:09→13:07)
[2024-07-19 07:27] LABS: Blood Urea Nitrogen 30 mg/dl (9-20); Calcium 9.2 mg/dl (8.4-10.2); Carbon Dioxide 29 mmol/L (22-30); Chloride 103 mmol/L (98-107); Estimated Creatinine Clearance > 125 ml/min; Glucose 94 mg/dl (70-99); Magnesium 2.2 mg/dl (1.6-2.3); Potassium 4.6 mmol/L (3.5-5.1); Sodium 143 mmol/L (135-145); eGFR > 60.00
[2024-07-19] MEDS: TOPROL XL 50 MG PO (08:04)
[2024-07-19 08:19] VITALS: BP 101/65
--- NOTE | 2024-07-19 11:04 | W.PN.CD ---
Today's Communication / Plan
-
OK for home on Metoprolol, no exercising, monitor and storage bin tender, additional testing planned.
Followup arranged.
Impression / Plan
-
Impression/Plan: 28-year-old male with past medical history of anxiety and family history of early coronary artery disease with recently diagnosed strep infection who presents to the ER with chest pain and elevated troponin, consistent with
myocarditis.
#Myocarditis
-Differential includes nonrheumatic myocarditis secondary to acute strep infection versus acute rheumatic fever with carditis
-Suspect nonrheumatic secondary to acute strep infection but regardless, the potential risks of under treating rheumatic fever are high.
-TTE with normal biventricular function and no valvular abnormalities.
-Cardiac MRI as an outpatient.
-Treatment for myocarditis is supportive care. NSAIDs should be avoided. He can take Tylenol as needed for pain.
-Continue metoprolol succinate to 50 mg daily given prior NSVT
-No exercise beyond walking for 30 day and no aggressive exercise for 3-6 months (could modify based on MRI findings) prior to returning to exercise we are planning ETT, event monitor, and echocardiogram.
-Appreciate ID recommendations for treatment of his possible rheumatic fever
#NSVT
-Acute.
-Likely due to myocarditis.
-Labs pending.
-Keep K > 4, Mg > 2, Ca > 8 and PO4 > 2.5.
-Increase metoprolol to 50 mg daily as above
Subjective/Interval History:
No VT in 24 hours. No CP
Physical Exam
Vital Signs/Labs
Vital Signs
Temp Pulse Resp BP Pulse Ox
98.2 F 75 17 101/65 98
07/19/24 08:19 07/19/24 08:19 07/19/24 08:19 07/19/24 08:19 07/19/24 09:44
07/16/24 03:57
07/19/24 06:38
Magnesium 2.2 mg/dl (1.6-2.3) 07/19/24 06:38
LAB Results
07/16/24 07/16/24 07/16/24
16:00 19:57 22:00
Troponin I Cancelled 23.200 H* Cancelled
07/17/24 07/17/24 07/18/24
06:55 20:16 07:43
Troponin I 22.500 H* 15.800 H* 16.200 H*
Physical Exam
Constitutional: No acute distress
Cardiovascular: Rhythm & rate is regular
Respiratory: Respiratory effort normal and Lungs clear to auscul.
GI: Soft and Distention absent
Neuro/Psych: AO x 3
Data Reviewed
-
Date of Service: July 19, 2024
[2024-07-19 11:08] VITALS: BP 100/60
--- NOTE | 2024-07-19 13:03 | W.DS.TRANS ---
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
-
Discharge Instructions:
Discharge Diagnosis/Procedures Myocarditis
Activity No strenuous activity
Additional Activity No strenuous activity for 3-6 months. You will
need testing prior to resuming vigorous exercise
.
Others Tests bus monitor will be sent to your house
Instructions:
Stand-Alone Forms:
Changes to Home Medications: Yes
Discharge Medications:
DC Medications w/original date entered in [employer]
lorazepam 0.5 mg tablet 0.5 mg PO TID PRN anxiety 08/04/23
acetaminophen 325 mg tablet 650 mg (2 x 325 mg) PO Q4HPRN PRN mild pain #1 tab 08/11/23
metoprolol succinate 50 mg tablet,extended release 24 hr 50 mg PO DAILY #30 tabs 07/19/24
penicillin V potassium 500 mg tablet 500 mg PO Q8H #120 tabs 07/19/24
Home Medication Changes
Antibiotics and beta-anisa initiated
Pending Results: No
--- NOTE | 2024-07-19 13:22 | W.PN.ID1 ---
Date of Service
Date of Service: July 19, 2024
Today's Communication
Continue PCN VK 500mg po q8h x 10d through 06/23/2024, then prophylactic PCN VK 250mg po bid x 10 years till 06/2034.
DC home today.
Assessment / Plan
# Acute rheumatic fever with myocarditis
- Positive rapid group A strep at urgent care
- Meets Kathy Steele criteria: 1 major: carditis; 2 minor: fever and elevated ESR/CRP
- Troponin peaked to 24.8, resolving. +episodes of VT, PVC's
- TTE: normal EF, no pericardial effusion, no valvular abnormality.
- Continue PCN VK 500mg po q8h x 10d through 06/23/2024, then prophylactic PCN VK 250mg po bid x 10 years till 06/2034.
- Can follow up with PCP.
Chief Complaint
-: Other (Rheumatic fever)
Subjective / Review of Systems
Feels well. Going home today.
Vital Signs / Physical Exam
Vital Signs
Vital Signs
Temp Pulse Resp BP Pulse Ox
98.8 F 73 17 100/60 100
07/19/24 11:08 07/19/24 11:08 07/19/24 11:08 07/19/24 11:08 07/19/24 11:08
Physical Exam
Constitutional: No Acute Distress and Comfortable
Oropharyngeal: Benign
Cardiovascular: Regular Rate and S1/S2
Pulmonary: Clear
Gastrointestinal: Soft, Non Tender and Non Distended
Objective Data
Lab Data
Lab Results
07/16/24 03:57
07/19/24 06:38
ESR 37 mm/hour (0-20) H 07/15/24 19:13
Estimated Creat Clear > 125 ml/min 07/19/24 06:38
Total Bilirubin 0.6 mg/dl (0.2-1.3) 07/15/24 19:13
AST 86 U/L (17-59) H 07/15/24 19:13
ALT 36 U/L (0-50) 07/15/24 19:13
Alkaline Phosphatase 33 U/L (38-126) L 07/15/24 19:13
C-Reactive Protein 126.50 mg/L (0.0-10.00) H 07/15/24 19:13
Most recent labs reviewed.
Micro Results:
07/15/24 21:00 Influenza Types A & B (QUETA) - Final
Nasal Swab Negative for Influenza A & B, NAAT
Negative results must be combined with clinical observations
and patient history.
Nucleic Acid Amplification test (NAAT)performed on the
[employer] platform.
07/15/[address]: Unremarkable CT of the Chest without contrast.
07/15/24 Neck XRAY: No retropharyngeal soft tissue swelling. No radiopaque foreign body. Subtle fullness at the base of tongue region of the vallecula, which could represent mild reactive/inflammatory lymphoid tissue given history of recent strep
pharyngitis.
07/17/24 TTE:
Normal biventricular size and systolic function without regional wall motion abnormality.
LVEF 55-60%.
No significant valvular disease.
No pericardial effusion.
Care Review
Plan reviewed with: Physician (Dr. Childers. )
--- NOTE | 2024-07-19 13:23 | PTCARENOTE ---
Discharge order acknowledged. Discharge instructions reviewed with patient. No further questions. IV site remove. Pt and mother ambulated off nursing floor to exit hospital.
== END 2024-07-19 13:26 | disposition home or self-care (01) | DRG 545 ==
LOC: 3 WEST ACU 22:06
PROVIDERS: ADMITTING PHYSICIAN Hospitalist; ATTENDING PHYSICIAN Internal Medicine; CONSULT PHYSICIAN Internal Medicine Infectious Disease; CONSULT PHYSICIAN Student in an Organized Health Care Education/Training Program; EMERGENCY PHYSICIAN Emergency Medicine; FAMILY PHYSICIAN Family Medicine
DX: I00 Rheumatic fever without heart involvement (principal); I40.9 Acute myocarditis, unspecified; I47.29 Other ventricular tachycardia; J02.0 Streptococcal pharyngitis; Z11.52 Encounter for screening for COVID-19
CPT/HCPCS: 70360; 71250; 80048; 80053; 83735; 84100; 84443; 84484; 85025; 85027; 85652; 86140; 87502; 87811; 93005; 93306; 96374; 99285

== ENCOUNTER → 2024-10-09 08:47 | Outpatient (REF) | payer OTHER, SELFPAY | LOC: PAVMRI 08:47 | PROVIDERS: ATTENDING PHYSICIAN Nurse Practitioner; FAMILY PHYSICIAN Family Medicine | DX: I01.2 Acute rheumatic myocarditis (principal) | CPT/HCPCS: 75561; 75565; A9585 ==

== ENCOUNTER → 2025-01-15 12:55 | Outpatient (REF) | payer OTHER, SELFPAY | LOC: RCS 12:55 | PROVIDERS: ATTENDING PHYSICIAN Student in an Organized Health Care Education/Training Program; FAMILY PHYSICIAN Family Medicine | DX: I01.2 Acute rheumatic myocarditis (principal) | CPT/HCPCS: 93017 ==

== ENCOUNTER → 2025-01-30 14:03 | Outpatient (REF) | payer OTHER, SELFPAY | LOC: HWRCS 14:03 | PROVIDERS: ATTENDING PHYSICIAN Student in an Organized Health Care Education/Training Program; FAMILY PHYSICIAN Family Medicine | DX: I01.2 Acute rheumatic myocarditis (principal) | CPT/HCPCS: 93306 ==